=== PATIENT | female | born 1950 | race Caucasian/White ===

== ENCOUNTER 2017-03-06 11:52 | Emergency (ER) | payer MEDICARE | END 2017-03-06 12:25 | disposition home or self-care (01) | LOC: MADERS 11:52 | DX: N81.2 Incomplete uterovaginal prolapse (principal); F17.210 Nicotine dependence, cigarettes, uncomplicated | CPT/HCPCS: 99283 ==

== ENCOUNTER 2021-11-26 14:26 | Emergency (ER) | payer MEDICARE ==
[2021-11-26] MEDS ORDERED: Morphine 4 MG/ML VIAL ONE (15:24)
[2021-11-26] MEDS ORDERED: Sodium Chloride 0.9% 500 ML ONE (15:24)
[2021-11-26] MEDS ORDERED: Ondansetron PF 4 MG/2 ML Vial ONE (15:24)
[2021-11-26 15:58] LABS: ALT (SGPT) Less than 7 U/L (8-55); AST (SGOT) 18 U/L (5-34); Albumin 3.9 g/dL (3.4-4.8); Alkaline Phosphatase 78 U/L (40-110); Anion Gap 16 mmol/L (10-20); Anisocytosis SLIGHT = 6-15 cells (100X) (0-5/hpf); BUN (Urea Nitrogen) 9 mg/dL (9.8-20.1); Bilirubin, Total 0.5 mg/dL (0.2-1.2); CRP (Inflammatory) 0.53 mg/dL (= or < 0.5); Calc. Creatinine Clearance 0 mL/min (70-130); Calcium 9.1 mg/dL (7.8-10.44); Carbon Dioxide 28 mmol/L (23-31); Chloride 100 mmol/L (98-107); Glucose 101 mg/dL (83-110); Hypochromia SLIGHT = 6-15 cells (100X) (0-5/hpf); Lymphocytes 20 % (21-51); MDiff Complete? YES; Monocytes 6 % (0-10); Neutrophil 74 % (42-75); Platelet Morphology Comment Appears Adequate; Potassium 4.5 mmol/L (3.5-5.1); Protein, Total 6.9 g/dL (5.8-8.1); Sodium 139 mmol/L (136-145)
[2021-11-26 15:59] LABS: Hemoglobin 12.7 g/dL (12.0-16.0); Mean Corpuscular HGB CONC 32.3 g/dL (32.0-36.0); Mean Corpuscular Hemoglobin 30.6 pg (27.0-31.0); Mean Corpuscular Volume 94.7 fL (78.0-98.0); Mean Platelet Volume 7.7 fL (7.4-10.4); Platelet Count 182 thou/uL (130-400); RBC Distribution Width 13.7 % (11.5-14.5); Red Blood Cell (RBC) Count 4.14 mill/uL (4.20-5.40); White Blood Cell (WBC) Count 8.7 thou/uL (4.8-10.8)
== END 2021-11-26 17:30 | disposition home or self-care (01) ==
LOC: MADERS 14:26
DX: M25.552 Pain in left hip (principal); M53.3 Sacrococcygeal disorders, not elsewhere classified; M06.9 Rheumatoid arthritis, unspecified; F17.210 Nicotine dependence, cigarettes, uncomplicated
CPT/HCPCS: 72170; 80053; 85025; 86140; 96374; 96375; J2270; J2405; J7030